=== PATIENT | female | born 1940 | race Caucasian/White ===

== ENCOUNTER 2016-10-30 04:49 | Inpatient (IN) | payer MEDICARE ==
[~2016-10-30] VITALS: Ht 160 cm; Wt 88.0 kg
--- NOTE | ~2016-10-30 | CR72 ---
[facility] A Service of [facility] RADIOLOGY TEXT RESULTS PATIENT: ROBE SEAMAN LOCATION: [facility] : 38 UNIT #: [id number] AGE: [address]: Theo Garcia MD SEX: F ORDER DR: [id number] [facility] [address] [place], [place] [address] [id number] E MR#: [id number] Acc #: [id number] NAME: ROBE SEAMAN : 1940 SEX: F STUDY DATE/TIME: 10/30/2016 6:04 UNIT: [facility] ROOM: STUDY DESCRIPTION: CR Chest Single View Portable Attending Physician: Theo Garcia M.D. Ordering Physician: Almita Wilcox A.P.R.N. Primary Care Physician: Li Scott M.D. MEDICAL IMAGING REPORT This report is preliminary unless electronic signature is present EXAM Portable chest, 10/30/2016 COMPARISON 09/24/2015 HISTORY Epigastric pain for 2 days. Shortness of air for 2 days. FINDINGS A portable view of the chest was obtained. The heart size and vascularity are normal and the lungs are clear. The bones are unremarkable. IMPRESSION No active disease. Dictated by... Huber Shaffer M.D. THIS IS AN ELECTRONICALLY VERIFIED REPORT Huber Shaffer M.D. at 10/30/2016 11:40 AM MERCEDES/jarett TD: 10/30/2016 10:40 JOB #: [id number] MEDICAL IMAGING REPORT Page 1 of 1 COPY
--- NOTE | ~2016-10-30 | US67 ---
[facility] A Service of [facility] RADIOLOGY TEXT RESULTS PATIENT: ROBE SEAMAN LOCATION: [facility] 576-01 : 38 UNIT #: [id number] AGE: [address]: Rosa Teague MD SEX: F ORDER DR: [id number] [facility] [address] [place], [place] [address] [id number] E MR#: [id number] Acc #: [id number] NAME: ROBE SEAMAN : 1940 SEX: F STUDY DATE/TIME: 10/30/2016 8:04 UNIT: [facility] ROOM: STUDY DESCRIPTION: Gallbladder Attending Physician: Theo Garcia M.D. Ordering Physician: Theo Garcia M.D. Primary Care Physician: Li Scott M.D. MEDICAL IMAGING REPORT This report is preliminary unless electronic signature is present EXAM Gallbladder ultrasound 10/30 INDICATIONS Abdominal pain for 2 days, mid epigastric. History of hyperlipidemia. FINDINGS Sonographic evaluation was performed of the right upper quadrant in multiple planes. No comparison. The pancreas is normal. Liver is grossly normal. The exam is degraded by prominent bowel gas. The right kidney is nonobstructed. The gallbladder contains some sludge. It is relatively poorly evaluated on this exam. No definite gallbladder wall thickening or gallstones. IMPRESSION Exam is degraded by bowel gas. The gallbladder is relatively poorly evaluated on this study. No obvious stones are seen although there is some gallbladder sludge. The common duct is never identified. Right kidney nonobstructed. Dictated by... Nick Zavala Jr., M.D. THIS IS AN ELECTRONICALLY VERIFIED REPORT Nick Zavala Jr., M.D. at 10/30/2016 5:19 PM ENRIQUEK/marina TD: 10/30/2016 12:42 JOB #: [id number] [facility] A Service of [facility] RADIOLOGY TEXT RESULTS PATIENT: ROBE SEAMAN LOCATION: [facility] 576-01 : 38 UNIT #: [id number] AGE: [address]: Rosa Teague MD SEX: F ORDER DR: MEDICAL IMAGING REPORT Page 1 of 1 COPY
--- NOTE | ~2016-10-30 | XA166 ---
[facility] A Service of [facility] RADIOLOGY TEXT RESULTS PATIENT: ROBE SEAMAN LOCATION: [facility] 576-01 : 38 UNIT #: [id number] AGE: [address]: Ramon Olivo MD SEX: F ORDER DR: [id number] [facility] [address] [place], [place] [address] [id number] I MR#: [id number] Acc #: [id number] NAME: ROBE SEAMAN : 1940 SEX: F STUDY DATE/TIME: 10/31/2016 14:49 UNIT: [facility] ROOM: [facility] STUDY DESCRIPTION: XA PICC Line Placement WO Port Attending Physician: Ramon Olivo M.D. Ordering Physician: Ramon Olivo M.D. Primary Care Physician: Li Scott M.D. MEDICAL IMAGING REPORT This report is preliminary unless electronic signature is present EXAM PICC line placement INDICATIONS Need for IV access in a patient with pancreatitis diagnosed on CT performed October 30, 2016. PRE-PROCEDURE The procedure was explained to the patient and/or patient energy conservation representative including risks, benefits, potential complications and potential for alternative forms of treatment. Informed consent was obtained, and prior to initiating the procedure a formal timeout procedure was performed. PROCEDURE Using full standard sterile barrier technique, including caps, gowns, gloves, masks, as well as sterile skin preparation and standard sterile draping, the right arm was prepped and draped in the usual fashion, and real-time sterile ultrasound guidance was used to localize an arm vein and to confirm vessel patency. A hard copy ultrasound image was recorded. After local anesthesia with 1% Xylocaine, the vein was punctured using real-time sterile ultrasound guidance, and an 0.018 guidewire was advanced into the superior vena cava, using fluoroscopic guidance. A 5-Ethiopian dual-lumen PICC was then measured and deployed with the tip positioned in the superior vena cava. The position of the line was documented with a radiographic image. The line was secured in place with an adhesive dressing and an antibiotic patch was applied. Total fluoro time was 0.1 minutes. IMPRESSION Successful placement of a 5-Ethiopian dual-lumen PowerPICC via the right arm under ultrasound and fluoroscopic guidance. The tip of the PICC is in good position in the superior vena cava. [facility] A Service of [facility] RADIOLOGY TEXT RESULTS PATIENT: ROBE SEAMAN LOCATION: [facility] 576-01 : 38 UNIT #: [id number] AGE: [address]: Ramon Olivo MD SEX: F ORDER DR: Dictated by... Erika Starr M.D. THIS IS AN ELECTRONICALLY VERIFIED REPORT Erika Starr M.D. at 11/01/2016 4:59 PM AFF/to TD: 11/01/2016 13:37 JOB #: [id number] MEDICAL IMAGING REPORT Page 1 of 1 COPY
--- NOTE | ~2016-10-30 | DS ---
Unit #: [id number] #: [id number] Patient: ROBE SEAMAN [id number] [address] [address] [id number] I MR#: [id number] NAME: ROBE SEAMAN ROOM: 576 Age: 76 Sex: F Admission Date: 10/30/2016 : 1940 Discharge Date: 11/02/2016 Attending Physician: Ramon Olivo M.D. Primary Care Physician: Li Scott M.D. DISCHARGE SUMMARY PRIMARY DIAGNOSIS Acute gallstone pancreatitis. SECONDARY DIAGNOSES 1. Cholecystitis. 2. Acute kidney injury, resolved prior to discharge. 3. Macrocytic anemia with normal B12 and folate. 4. History of asthma. 5. History of anxiety. 6. History of chronic shortness of breath of undetermined etiology, possibly related to her asthma, possibly related to chronic cardiac disease, possibly related to anxiety, possibly related to seasonal allergies and has been longstanding without any flare in the hospital at this time. HOSPITAL COURSE The patient was admitted to the hospital, given pain control, antibiotics and bowel rest with being made NPO. She was seen in consultation by gastroenterology with Dr. Tim Mae and underwent ERCP with findings of Harvey esophagus, gastritis, multiple small ulcers, dilated bile duct and multiple large filling defects suggestive of stones in the gallbladder. The patient underwent sphincterotomy, balloon extraction without any stones actually being extracted, and place of a 7 x 7 common bile duct stent. Subsequently surgery was consulted, and the patient underwent laparoscopic cholecystectomy on 11/01/2016. She had an uncomplicated postoperative course and is ambulating pain free, tolerating diet. She is somewhat unsteady on her feet, but she does already have a walker at home, and she will use that in the interval. We will also get physical therapy to see her at home. The patient had some tachycardia while here. I am going to increase her Lopressor slightly up from her home dose. DISCHARGE DISPOSITION To home with home health for physical therapy and occupational therapy. DISCHARGE STATUS Stable. DISCHARGE DIET A 2,000 mg sodium, heart healthy diet. DISCHARGE ACTIVITY Unit #: [id number] #: [id number] Patient: ROBE SEAMAN With her wheeled walker at all times until cleared for more activity by physical therapy. DISCHARGE FOLLOWUP 1. Discharge followup is with Dr. Reeder with surgery in 10-14 days. 2. Follow up with her PCP in 2-4 weeks. 3. Follow up with Dr. Tim Mae in 4 weeks. DISCHARGE MEDICATIONS 1. Lexapro 10 mg p.o. daily. 2. Fexofenadine 1 tablet p.o. daily. 3. Requip 0.25 mg p.o. q.h.s. 4. Lorazepam 1 mg p.o. q.h.s. 5. Lopressor 25 mg p.o. t.i.d. 6. Omeprazole 40 mg p.o. once daily. 7. Lisinopril 10 mg p.o. once daily. 8. Allopurinol 300 mg p.o. daily. 9. Lortab 5/325 mg 1 tablet p.o. q.6 hours p.r.n. pain for the next 10 days. Dictated by... Ramon Olivo M.D. CHAYA/diana TD: 11/04/2016 12:17 JOB #: [id number] DISCHARGE SUMMARY Page 1 of 1 X Ramon Olivo MD X DISCHARGE SUMMARY
--- NOTE | ~2016-10-30 | CO ---
Unit #: [id number] #: [id number] Patient: ROBE SEAMAN [id number] [address] [place], [place] [address] [id number] I MR#: [id number] NAME: ROBE SEAMAN ROOM: 576 Age: 76 Sex: F Admission Date: 10/30/2016 : 1940 Attending Physician: Ramon Olivo M.D. Primary Care Physician: Li Scott M.D. Consultation Date: 10/31/2016 CONSULTATION REPORT CHIEF COMPLAINT Abdominal pain. HISTORY OF PRESENT ILLNESS This is a 76-year-old lady, who began feeling sick to her stomach on Sunday, pain intensified. She had some nausea and vomiting that began on Sunday. She came into the ER and was diagnosed with pancreatitis. She has not had any prior episodes. The pain localized to the midsternal region. PAST MEDICAL HISTORY Significant for coronary artery disease, congestive heart failure, hypertension, history of asthma. PAST SURGICAL HISTORY She has had a hysterectomy with bladder repair. She has had cardiac stents placed in 2009. She has undergone recent cardiac evaluation with no new suggestions. She has also undergone tonsillectomy, cataract surgery, right foot surgery, left knee replacement, and she had a colonoscopy in the past. Please see med rec list. ALLERGIES In terms of allergies, she is allergic to statins. SOCIAL HISTORY She is . Denies any tobacco or alcohol use. FAMILY HISTORY Negative for cancer. REVIEW OF SYSTEMS Negative for fevers, weight loss, or jaundice and is otherwise as above. PHYSICAL EXAMINATION VITAL SIGNS: Temperature is 98.3, heart rate is 95, respiratory rate is 16, blood pressure is 149/65. GENERAL: She is in no acute distress. HEENT: Pupils are equal and reactive to light and accommodation and her extraocular muscles are intact. NECK: Without masses or bruits. LUNGS: Show good breath sounds bilaterally with equal air exchange. CARDIAC: Shows regular rate and rhythm without murmur. ABDOMEN: Soft, nondistended, and she has mild tenderness in the epigastric region. Unit #: [id number] #: [id number] Patient: ROBE SEAMAN NEUROLOGIC: She is alert and oriented. There are no focal deficits. EXTREMITIES: Without edema or cyanosis. DIAGNOSTIC STUDIES IMAGING STUDIES: Ultrasound showed questionable sludge. She has CT scan that showed pancreatitis and gallstones. Previous CT scan in 2011 also showed gallstones. LABORATORY RESULTS: Amylase on admission was 747 that came down to 185, lipase went from 745 down to 57. Total bilirubin is normal. Alkaline phosphatase is normal. Mild increase in her AST and ALT. White count is 12,000, hemoglobin is 11.4. She underwent ERCP today and was noted to have multiple stones in the common bile duct and a stent was placed. OVERALL IMPRESSION This is a lady who had a gallstone pancreatitis. I talked to her about proceeding with laparoscopic cholecystectomy. We discussed her procedure including risks, benefits, and complications of bleeding, infection, bile leak, and common bile duct injury. We also discussed possibly having to convert to an open procedure. She understands and wishes to proceed. Dictated by... Brian Reeder III, M.D. VCL/mariposa TD: 11/01/2016 03:50 JOB #: [id number] CONSULTATION REPORT Page 1 of 1 X Brian Reeder III, MD CONSULTATION REPORT
--- NOTE | ~2016-10-30 | EKG ---
PATIENT: ROBE SEAMAN UNIT #: [id number] Ventricular Rate: 115 BPM Atrial Rate: 115 BPM P-R Interval: 162 ms QRS Duration: 110 ms Q-T Interval: 326 ms QTC Calculation(Bezet): 450 ms P [place]: 56 degrees Calculated R [place]: -17 degrees Calculated T [place]: 102 degrees Diagnosis Line: Sinus tachycardia Diagnosis Line: ST and T wave abnormality, consider lateral ischemia Diagnosis Line: Abnormal ECG Diagnosis Line: When compared with ECG of 24-SEP-2015 23:00, Diagnosis Line: No significant change was found Diagnosis Line: Confirmed by KATJA DOHERTY MD ([id number]) on Diagnosis Line: 10/30/2016 9:36:58 AM INTERPRETING MD: BESSY COLEY
--- NOTE | ~2016-10-30 | CR84 ---
[facility] A Service of [facility] & [facility] RADIOLOGY TEXT RESULTS PATIENT: ROBE SEAMAN LOCATION: [facility] 576-01 : 38 UNIT #: [id number] AGE: [address]: Ramon Olivo MD SEX: F ORDER DR: [id number] [facility] [address] [place], [place] [address] [id number] I MR#: [id number] Acc #: [id number] NAME: ROBE SEAMAN : 1940 SEX: F STUDY DATE/TIME: 10/31/2016 10:37 UNIT: [facility] ROOM: [facility] STUDY DESCRIPTION: CR ERCP Biliary and Pancr SI Attending Physician: Ramon Olivo M.D. Ordering Physician: Tim Mae M.D. Primary Care Physician: Li Scott M.D. MEDICAL IMAGING REPORT This report is preliminary unless electronic signature is present EXAM ERCP HISTORY Cholecystectomy, biliary pancreatitis, and elevated liver enzymes. Fluoroscopy time 2 minutes 51 seconds. FINDINGS Four fluoroscopic spot films were obtained during the ERCP procedure performed by the attending endoscopist. Injection of the common bile duct demonstrates mild intra and extrahepatic biliary ductal dilatation. The distal third of the common bile duct is not opacified. No strictures identified within the opacified bile ducts. Balloon sweep of the extrahepatic duct was performed and a biliary stent was placed extending to approximately the level of the descending duodenum. The pancreatic duct was not injected. No intraductal filling defects are identified. IMPRESSION 1. Mild dilatation of the opacified intra and extrahepatic bile ducts. The distal third of the common bile duct is not opacified. 2. No intraductal filling defects are identified. No biliary stricture is demonstrated. 3. Balloon sweep was performed. Biliary stent was placed at the conclusion of the procedure. Dictated by... Jose Johnson M.D. THIS IS AN ELECTRONICALLY VERIFIED REPORT Jose Johnson M.D. at 11/01/2016 11:30 PM DFL/rnr [facility] A Service of [facility] & [facility] RADIOLOGY TEXT RESULTS PATIENT: ROBE SEAMAN LOCATION: [facility] 576-01 : 38 UNIT #: [id number] AGE: [address]: Ramon Olivo MD SEX: F ORDER DR: TD: 11/01/2016 01:37 JOB #: [id number] MEDICAL IMAGING REPORT Page 1 of 1 COPY
--- NOTE | ~2016-10-30 | CT4 ---
[facility] A Service of [facility] & [facility] RADIOLOGY TEXT RESULTS PATIENT: ROBE SEAMAN LOCATION: [facility] : 38 UNIT #: [id number] AGE: [address]: Theo Garcia MD SEX: F ORDER DR: [id number] [facility] [address] [place], [place] [address] [id number] E MR#: [id number] Acc #: [id number] NAME: ROBE SEAMAN : 1940 SEX: F STUDY DATE/TIME: 10/30/2016 UNIT: [facility] ROOM: STUDY DESCRIPTION: CT Abd and Pelv Wo Cont Attending Physician: Theo Garcia M.D. Ordering Physician: Theo Garcia M.D. Primary Care Physician: Li Scott M.D. MEDICAL IMAGING REPORT This report is preliminary unless electronic signature is present EXAM CT abdomen and pelvis without contrast 10/30/2016 11:03 hours HISTORY 76-year-old woman with complaint of epigastric abdominal pain for 2 days with associated nausea and vomiting. COMPARISON CT abdomen and pelvis 08/14/2011 TECHNIQUE Helical noncontrasted images were obtained from the lung bases through the pubic symphysis without oral or intravenous contrast. Sagittal and coronal reconstructions were performed. Total exam DLP is 946 mGy-cm. The CT exam was performed with one or more of the following radiation dose reduction techniques: automatic exposure control, adjustment of mA and/or kV according to patient size, and iterative reconstruction. FINDINGS Images through the lung bases demonstrate mild linear density at both bases consistent with chronic atelectasis or scar. There are a few tiny calcified granulomata which are unchanged. Noncontrasted images through the abdomen demonstrate a normal appearance to the liver and spleen. The gallbladder is distended with stones present. There is no definite gallbladder wall thickening. The pancreas is normal in size. There is fluid and stranding around the head, body and tail of the pancreas. There is mild stranding extending towards the left pericolic gutter new from 2011. The findings raise concern for acute non-hemorrhagic pancreatitis. Correlate with amylase and lipase. The adrenal glands are normal. The kidneys appear slightly atrophic with no STS. [facility] A Service of [facility] & [facility] RADIOLOGY TEXT RESULTS PATIENT: ROBE SEAMAN [id number] UNIT #: [id number] AGE: [address]: Theo Garcia MD SEX: F ORDER DR: mass or stone. There is no ureterectasis or ureteral calculus. The bladder is normal. There are multiple retroperitoneal and pelvic phleboliths similar to prior exam. The stomach is contracted. No lesions are seen. There is some fluid posterolateral to the greater curvature of the stomach superior to the pancreas measuring up to 4.5 cm. This does not appear to have a percent the bone wall. Small bowel is normal. The terminal ileum is normal. There is no evidence of appendicitis. The colon is decompressed. There a few scattered diverticula but no wall thickening. CT pelvis demonstrates the uterus is surgically absent. There is no adnexal mass. There is a very small amount of dependent free fluid. IMPRESSION 1. There is mild ground-glass density surrounding the pancreas with some fluid around the pancreas and extending posterior to the stomach with stranding extending into the anterior pararenal space on the left. The findings raise concern for non hemorrhagic pancreatitis. There is no dilatation of the pancreatic duct and no drainable fluid collection. There is an 4 cm area of fluid posterolateral to the greater curvature of the stomach cephalad to the pancreas which does not appear to have a percent of the wall or organized appearance. 2. Cholelithiasis with distended gallbladder. There is no gallbladder wall thickening. There is no definite common bile duct stones seen. There is no dilatation of the pancreatic duct. 3. No renal or ureteral calculi. 4. Diverticulosis without evidence of diverticulitis. Dictated by... Rosa Roy M.D. THIS IS AN ELECTRONICALLY VERIFIED REPORT Rosa Roy M.D. at 10/30/2016 2:28 PM GRETEL/marina TD: 10/30/2016 11:28 JOB #: [id number] MEDICAL IMAGING REPORT Page 1 of 1 COPY
--- NOTE | ~2016-10-30 | OR ---
Unit #: [id number] #: [id number] Patient: ROBE SEAMAN [id number] [address] [address] [id number] [place] MR#: [id number] NAME: ROBE SEAMAN ROOM: 576 Date of Procedure: 11/01/2016 Admission Date: 10/30/2016 Surgeon: Brian Reeder III, M.D. : 1940 Attending Physician: Ramon Olivo M.D. Primary Care Physician: Li Scott M.D. OPERATIVE REPORT PREOPERATIVE DIAGNOSIS Gallstone pancreatitis. POSTOPERATIVE DIAGNOSIS Gallstone pancreatitis. PROCEDURE PERFORMED Laparoscopic cholecystectomy. DRUM SAW OPERATOR Alejo Blackwell M.D. SPECIMENS Gallbladder to pathology. COMPLICATIONS None apparent. ESTIMATED BLOOD LOSS Minimal. ANESTHESIA General endotracheal tube anesthesia. INDICATIONS FOR PROCEDURE This is a 76-year-old lady, who presented with gallstone pancreatitis. She underwent ERCP yesterday with retrieval of stones from the main bile duct and placement of a stent. She is here today for completion cholecystectomy. DESCRIPTION OF PROCEDURE After consent was obtained, the patient was brought to the operating room and placed in the supine position. General anesthetic was administered. Her abdomen was prepped and draped in standard surgical fashion. I made a 5-mm incision in the right upper quadrant using Optiview to enter into the peritoneal cavity without any difficulty. CO2 pneumoperitoneum was then established. Next, a second 5-mm port was placed in the supraumbilical region, and an 11-mm port was placed in the midepigastric region, and a third 5-mm port was placed in the right lateral subcostal region. I was able to grasp her gallbladder and retracted superiorly and laterally. The gallbladder had some mildly friable areas that did tear and spilled some bile. This was suctioned at the end of the case. I was able to dissect Unit #: [id number] #: [id number] Patient: ROBE SEAMAN out the cystic duct and cystic artery and after these were carefully identified, I placed 2 clips proximally and one clip distally along both structures and then they were divided. The gallbladder was then taken off the liver bed using the hook cautery without any difficulty. The gallbladder was extracted through the epigastric port site with some dilatation of the fascia. I irrigated and had good hemostasis except for some mild bleeding from the liver bed which was cauterized and then secured with Surgicel to facilitate hemostasis. There were couple of spilled stones that were retrieved as well. All needle, sponge, and instrument counts were correct x2. I removed all the trocars and released pneumoperitoneum. I injected all port sites with 0.25% plain Marcaine and I reapproximated the skin edges with interrupted 4-0 Vicryl subcuticular suture. Steri-Strips were then applied. The patient tolerated the procedure without any problems and returned to the recovery room in stable condition. Dictated by... Brian Reeder III, M.D. VCL/mariposa TD: 11/03/2016 03:47 JOB #: [id number] CC: Tim Mae M.D. OPERATIVE REPORT Page 1 of 1 X Brian Reeder III, MD X PROCEDURE OPERATIVE NOTE
--- NOTE | ~2016-10-30 | OR ---
Unit #: [id number] #: [id number] Patient: ROBE SEAMAN [id number] [address] [place], [place] [address] [id number] MR#: [id number] NAME: ROBE SEAMAN ROOM: 576 Date of Procedure: 10/31/2016 Admission Date: 10/30/2016 Surgeon: Tim Mae M.D. : 1940 Attending Physician: Ramon Olivo M.D. Primary Care Physician: Li Scott M.D. OPERATIVE REPORT JOB NOTE: VERIFY MRN. CC: PRIMARY CARE PHYSICIAN. PROCEDURE PERFORMED Esophagogastroduodenoscopy with biopsy, endoscopic retrograde cholangiopancreatography with sphincterotomy, balloon extraction as well as stenting of common bile duct. INDICATIONS The patient presented with acute abdominal pain, acute biliary pancreatitis, abnormal LFTs, as well as gallstones with possibility of common bile duct stones. MEDICATIONS Monitored anesthesia. POSTOPERATIVE FINDINGS 1. 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 Biopsies taken. 2. Significant gastritis along with multiple small ulcers, two small, one is in fundus also. Biopsies taken looking for Helicobacter pylori. 3. Normal duodenum and distal duodenum. 4. Bile duct was cannulated and showed dilation up to 9 to 10 mm. Cystic duct was patent, filling gallbladder with multiple large filling defects. 5. No clear filling defects in the bile duct. 6. Small sphincterotomy was made at 12 o'clock position. 7. Balloon extraction was carried out. No stones were seen. 8. 7 x 7 CBD stent was placed under fluoroscopic guidance. 9. PD was not injected. PLAN Continue follow in-house with aggressive medical management. Lap sivan per LSA. DESCRIPTION OF PROCEDURE The patient was explained of the procedure, risks, and benefits along with risks and benefits of anesthesia. She was brought to the endoscopy room. Propofol anesthesia was given. She was laid in the prone position. EGD was done first. Scope was passed down the mouth into esophagus, stomach, duodenum, and distal duodenum. Findings as described. Biopsies taken in Unit #: [id number] #: [id number] Patient: ROBE SEAMAN the stomach and distal esophagus. ERCP done. The scope was then passed down the mouth into the esophagus, stomach. Ampulla was visualized. It was normal in appearance. After few attempts, I was able to cannulate the bile duct selectively. Findings have been described above. Sphincterotomy was then performed first. Balloon extraction was then carried out which was negative. I then placed a 7 x 7 stent across the bile duct under fluoroscopic and endoscopic guidance. Gently, the scope was pulled out. Gastric decompression was carried out. She tolerated it well. No major complications were seen. Dictated by... Donal Gomez/[place] TD: 11/01/2016 03:56 JOB #: [id number] OPERATIVE REPORT Page 1 of 1 X Tim Mae MD X PROCEDURE OPERATIVE NOTE
--- NOTE | ~2016-10-30 | HP ---
Unit #: [id number] #: [id number] Patient: ROBE SEAMAN [id number] [facility]. [place], [place] [address] [id number] MR#: [id number] NAME: ROBE SEAMAN ROOM: Age: 76 Sex: F Admission Date: 10/30/2016 : 1940 Attending Physician: Theo Garcia M.D. Primary Care Physician: Li Scott M.D. HISTORY AND PHYSICAL CHIEF COMPLAINT Abdominal pain. HISTORY OF PRESENT ILLNESS The patient is a 76-year-old female with past medical history of hypertension, hyperlipidemia, coronary artery disease, congestive heart failure, GERD, anxiety, depression, urinary retention who presented to the emergency department for evaluation of the above. The patient states that she started feeling bad on the 28 of October. She states that initially her stomach felt "upset." She then experienced pain in the upper abdomen and now it is "everywhere." She describes it as "severe." She also describes it as "hard cramping." There are exacerbating or alleviating factors. She has had three bouts of nonbloody emesis within the past 24 hours and one bout of nonbloody diarrhea. She denies any fever. No cough or cold symptoms. In the emergency department, initial pulse and blood pressure are 124 and [address] of the abdomen and pelvis was done and showed findings concerning for pancreatitis. Amylase and lipase are 747 and 745 respectively. She was given 1 L of normal saline in the emergency department as well as morphine and Zofran. She is being admitted to [facility] for evaluation and further treatment. PAST MEDICAL HISTORY 1. Admission to [facility], April 21 through April 24, 2013, for left total knee arthroplasty. 2. Congestive heart failure. I do not see an echocardiogram in [facility]; however, the patient did have a cardiac catheterization on June 15, 2009 that showed an ejection fraction of about 60%. 3. Coronary artery disease, status post cardiac stent placement followed by Dr. Weaver. The patient has seen Dr. Marley in the past here at [facility]. 4. History of urinary retention. 5. Hypertension. 6. Hyperlipidemia. 7. GERD. 8. Anxiety and depression. PAST SURGICAL HISTORY 1. Cardiac catheterization. 2. Hysterectomy. 3. Bladder repair. 4. Cardiac stent placement. Unit #: [id number] #: [id number] Patient: ROBE SEAMAN 5. Tonsillectomy. 6. Cataract surgery. 7. D and C. 8. Right foot surgery. 9. Colonoscopy. 10. Left knee surgery. SOCIAL HISTORY The patient lives with her . There is no tobacco use. She reports occasional alcohol use. FAMILY HISTORY Notable for hypertension, CHF, coronary artery disease. ALLERGIES Statins. HOME MEDICATIONS 1. Allopurinol 300 mg daily. 2. Lexapro 10 mg daily. 3. Zestril 10 mg daily. 4. [place] daily. 5. Lopressor 25 mg twice daily. 6. Lorazepam 1 mg daily. 7. Requip 0.25 mg at bedtime. REVIEW OF SYSTEMS A complete review of systems is negative except as indicated in the HPI. The patient recently completed a course of antibiotics (unknown antibiotic) for urinary tract infection. DIAGNOSTIC STUDIES LABORATORY: Complete blood count notable for MCV of 100.4. Troponin is less than 0.05. Comprehensive metabolic panel notable for glucose of 144, BUN and creatinine 38 and 1.6 respectively. AST and ALT are 136 and 138 respectively. Amylase and lipase are 747 and 745 respectively. Urinalysis essentially negative. IMAGING: CT of the abdomen and pelvis shows findings concerning for nonhemorrhagic pancreatitis, cholelithiasis with a distended gallbladder is also noted with no gallbladder wall thickening. Chest x-ray shows no active disease. Right upper quadrant ultrasound is pending at the time of this dictation. CARDIOVASCULAR: EKG shows sinus tachycardia with rate of 115 beats per minute. PHYSICAL EXAMINATION VITAL SIGNS: Temperature is 98.7, pulse 124, respirations 15, blood pressure 156/88, oxygen saturation is 98% on room air. GENERAL: The patient is a female who is awake and alert in no acute distress. HEENT: The head is atraumatic. Mucous membranes are moist. NECK: Supple. Trachea is midline. CARDIOVASCULAR: Regular rate and rhythm. LUNGS: Clear to auscultation bilaterally with no increased work of Unit #: [id number] #: [id number] Patient: ROBE SEAMAN breathing. ABDOMEN: Soft. She is tender to palpation in the epigastric region. Bowel sounds are present in all four quadrants. EXTREMITIES: Nontender with no pedal edema. NEUROLOGIC: The patient is awake and alert. She follows commands. PSYCHIATRIC: Mood and affect are normal. The patient is cooperative. SKIN: Skin of examined areas is warm and dry. ASSESSMENT The patient is a 76-year-old female: 1. Acute pancreatitis, likely secondary to #2. The patient is also on lisinopril which could be contributing. 2. Cholelithiasis with pending right upper quadrant ultrasound. 3. Acute kidney injury: The patient's creatinine was 1.1 on September 24, 2015. It is 1.6 today. This is likely prerenal in etiology as the patient has had vomiting and diarrhea. 4. Transaminitis. 5. Hypertension. 6. Hyperlipidemia. 7. Coronary artery disease, status post stent placement with an ejection fraction of 60% noted on cardiac catheterization in 2009. 8. Gastroesophageal reflux disease. 9. Anxiety, depression. 10. History of urinary retention. PLAN 1. Admit to intermediate level. 2. NPO except medications. 3. Normal saline at 75 mL/hr. 4. P.r.n. morphine. 5. P.r.n. Zofran. 6. Followup results of gallbladder ultrasound. 7. Fasting lipid panel. 8. Hold lisinopril which could be contributing to pancreatitis. 9. Consult Dr. Mae regarding pancreatitis. 10. Serial cardiac enzymes. 11. Repeat labs in the morning including amylase and lipase. 12. Sequential compression devices for deep venous thrombosis prophylaxis. 13. Additional workup and consultants based on above. Dictated by Donal Segura/christi TD: 10/30/2016 13:55 JOB #: [id number] Unit #: [id number] #: [id number] Patient: ROBE SEAMAN HISTORY AND PHYSICAL Page 1 of 1 X Rosa Teague MD HISTORY AND PHYSICAL
[~2016-10-30 04:49] MED LIST: ALLEGRA ALLERG180 MG PO; ASPIRIN81 M2 PO; CLONAZEPAM2 MG PO; FLEXERIL10 M1 PO; FLUOXETINE HCL20 M1 PO; LEVAQUIN PO; LISINOPRIL10 MG PO; MEDI-MECLIZINE25 M1 PO; METOPROLOL TAR25 MG PO; METOPROLOL TART25 MG PO; NAPROSYN500 MG PO; NORCO 7.5-3251 EACH PO; PROZAC40 M1 PO; VITAMIN D31000 UNI1 PO; ZYLOPRIM100 MG PO
[2016-10-30 05:51] LABS: BASOPHIL% 0.4 % (0-2.5); EOSINOPHIL% 0.4 % (0.0-7.0); HEMATOCRIT 39.3 % (35.0-45.0); HEMOGLOBIN 12.6 gm/dL (12.0-16.0); LYMPHOCYTE# 1.6 X10e3 (1.0-3.5); LYMPHOCYTE% 15.3 % (17.0-45.0); MEAN CELL VOLUME 100.4 FL (83-96); MEAN CORPUSCULAR HEMOGLOBIN 32.2 PG (28-34); MEAN CORPUSCULAR HGB CONC 32.1 g/dL (30-36); MEAN PLATELET VOLUME 8.7 FL (6.5-11.5); MONOCYTE# 0.8 X10e3 (0-1.0); MONOCYTE% 7.7 % (3.0-12.0); NEUTROPHIL% 76.2 % (40-75); PLATELET COUNT 227 X10e3 (140-420); RED BLOOD COUNT 3.92 X10e (3.90-5.30); RED CELL DISTRIBUTION WIDTH 14.8 % (11.0-15.5); WHITE BLOOD COUNT 10.5 X10e3 (4.0-10.5)
[2016-10-30 05:53] LABS: DIFF IND NO
[2016-10-30 06:24] LABS: POC - CKMB 1.7 ng/mL (0.0-7.9); POC - TROPONIN <0.05 ng/mL (<=0.05)
[2016-10-30 06:57] LABS: ALBUMIN SERUM 3.9 g/dL (3.5-5.0); BILIRUBIN, DIRECT 0.2 mg/dL (0.0-0.2); BILIRUBIN,INDIRECT 0.7 mg/dL (0.0-0.9); BILIRUBIN,TOTAL 0.9 mg/dL (0.2-2.0); BUN/CREATININE RATIO 23.75; CALCIUM SERUM 9.6 mg/dL (8.4-10.2); CREATININE SERUM 1.6 mg/dL (0.6-1.4); GLOM FILT RATE Estimated 30.6 mL/min (>60); POTASSIUM 4.5 mmol/L (3.5-5.1); PROTEIN TOTAL SERUM 6.7 g/dL (6.0-8.3)
[2016-10-30 07:53] LABS: URINE SOURCE CLEAN CATCH
[2016-10-30 07:59] LABS: URINE APPEARANCE CLEAR; URINE BILIRUBIN NEG (NEG); URINE BLOOD NEG (NEG); URINE COLOR YELLOW; URINE GLUCOSE NEG (NEG); URINE KETONE NEG (NEG); URINE LEUKOCYTE ESTERASE NEG (NEG); URINE NITRATE NEG (NEG); URINE PH 7.5 (5-8); URINE PROTEIN NEG (NEG); URINE SPECIFIC GRAVITY 1.014 (1.003-1.035); URINE UROBILINOGEN 0.2 MG/DL (NEG)
[2016-10-30 08:02] LABS: CULTURE INDICATED? NO
[2016-10-30 09:59] LABS: POC - CKMB 1.5 ng/mL (0.0-7.9); POC - TROPONIN <0.05 ng/mL (<=0.05)
[2016-10-30] MEDS ORDERED: LISINOPRIL PO (11:18)
[2016-10-30] MEDS ORDERED: ALLOPURINOL300 MG PO (11:18)
[2016-10-30] MEDS ORDERED: PATIENT'S PHARMACY (11:18)
[2016-10-30] MEDS ORDERED: LEXAPRO PO (11:18)
[2016-10-30] MEDS ORDERED: REQUIP0.25 MG PO (11:19)
[2016-10-30] MEDS ORDERED: ATIVAN PO (11:19)
[2016-10-30] MEDS ORDERED: ALLEGRA PO (11:19)
[2016-10-30] MEDS ORDERED: LOPRESSOR PO (11:19)
[2016-10-30 13:38] LABS: CHOLESTEROL 229 mg/dL (0-200); HDL CHOLESTEROL 56 mg/dL (35-95); LDL/HDL RATIO 3 RATIO (0-4); TRIGLYCERIDES 79 mg/dL (10-160)
[2016-10-30 13:41] LABS: LDL CHOLESTEROL 157 mg/dL ([, -130])
[2016-10-30 16:32] LABS: CK TOTAL 56 IU/L (26-140)
[2016-10-30 21:35] LABS: %MB 6.2 % (0.0-4.0); MB 3.8 ng/ml
[2016-10-31 05:53] LABS: HEMOGLOBIN 11.4 gm/dL (12.0-16.0); MEAN CELL VOLUME 102.3 FL (83-96); MEAN CORPUSCULAR HEMOGLOBIN 32.3 PG (28-34); MEAN CORPUSCULAR HGB CONC 31.6 g/dL (30-36); RED BLOOD COUNT 3.52 X10e (3.90-5.30); RED CELL DISTRIBUTION WIDTH 14.8 % (11.0-15.5); WHITE BLOOD COUNT 12.9 X10e3 (4.0-10.5)
[2016-10-31 06:38] LABS: ALBUMIN SERUM 3.2 g/dL (3.5-5.0); BILIRUBIN,TOTAL 0.5 mg/dL (0.2-2.0); CALCIUM SERUM 8.3 mg/dL (8.4-10.2); GLOM FILT RATE Estimated 53.9 mL/min (>60); POTASSIUM 4.4 mmol/L (3.5-5.1); PROTEIN TOTAL SERUM 5.9 g/dL (6.0-8.3)
[2016-11-01 05:44] LABS: HEMOGLOBIN 10.5 gm/dL (12.0-16.0); MEAN CELL VOLUME 102.4 FL (83-96); MEAN CORPUSCULAR HEMOGLOBIN 32.7 PG (28-34); MEAN PLATELET VOLUME 8.8 FL (6.5-11.5); RED BLOOD COUNT 3.22 X10e (3.90-5.30); RED CELL DISTRIBUTION WIDTH 14.8 % (11.0-15.5); WHITE BLOOD COUNT 9.8 X10e3 (4.0-10.5)
[2016-11-01 06:25] LABS: ALBUMIN SERUM 2.9 g/dL (3.5-5.0); BILIRUBIN,TOTAL 0.8 mg/dL (0.2-2.0); BUN/CREATININE RATIO 23.75; CALCIUM SERUM 8.1 mg/dL (8.4-10.2); CREATININE SERUM 0.8 mg/dL (0.6-1.4); GLOM FILT RATE Estimated 70.7 mL/min (>60); POTASSIUM 3.8 mmol/L (3.5-5.1); PROTEIN TOTAL SERUM 5.6 g/dL (6.0-8.3)
[2016-11-02 05:58] LABS: BASOPHIL% 0.3 % (0-2.5); EOSINOPHIL# 0.1 X10e3 (0-0.7); EOSINOPHIL% 1.4 % (0.0-7.0); HEMATOCRIT 31.6 % (35.0-45.0); HEMOGLOBIN 10.2 gm/dL (12.0-16.0); LYMPHOCYTE% 12.3 % (17.0-45.0); MEAN CELL VOLUME 101.2 FL (83-96); MEAN CORPUSCULAR HEMOGLOBIN 32.7 PG (28-34); MEAN CORPUSCULAR HGB CONC 32.3 g/dL (30-36); MEAN PLATELET VOLUME 8.9 FL (6.5-11.5); MONOCYTE# 0.8 X10e3 (0-1.0); MONOCYTE% 9.9 % (3.0-12.0); NEUTROPHIL# 5.9 X10e3 (1.5-7.1); NEUTROPHIL% 76.1 % (40-75); PLATELET COUNT 204 X10e3 (140-420); RED BLOOD COUNT 3.13 X10e (3.90-5.30); RED CELL DISTRIBUTION WIDTH 14.6 % (11.0-15.5); WHITE BLOOD COUNT 7.8 X10e3 (4.0-10.5)
[2016-11-02 06:08] LABS: DIFF IND NO
[2016-11-02 07:16] LABS: ALBUMIN SERUM 2.6 g/dL (3.5-5.0); BILIRUBIN,TOTAL 1.2 mg/dL (0.2-2.0); BUN/CREATININE RATIO 18.75; CREATININE SERUM 0.8 mg/dL (0.6-1.4); GLOM FILT RATE Estimated 70.7 mL/min (>60); POTASSIUM 3.6 mmol/L (3.5-5.1); PROTEIN TOTAL SERUM 5.3 g/dL (6.0-8.3)
[2016-11-02] MEDS ORDERED: LORTAB 5-325 M1 EACH PO (13:27)
[2016-11-02] MEDS ORDERED: OMEPRAZOLE40 M1 PO (13:28)
== END 2016-11-02 16:27 | disposition home or self-care (01) | DRG 418 ==
LOC: CED 04:49 → C5C 12:50 → CEDOF 12:50 → CED 16:37 → CEDOF 16:41 → C5C 16:41
PROVIDERS: Emergency Medicine; Family Medicine; Internal Medicine; Nurse Practitioner; Surgery
PROC: 02HV33Z Insertion of Infusion Device into Superior Vena Cava, Percutaneous Approach (ICD-10-PCS; 2016-10-31)
PROC: B548ZZA Ultrasonography of Superior Vena Cava, Guidance (ICD-10-PCS; 2016-10-31)
PROC: 0F798DZ Dilation of Common Bile Duct with Intraluminal Device, Via Natural or Artificial Opening Endoscopic (ICD-10-PCS; 2016-10-31 11:05)
PROC: 0DB38ZX Excision of Lower Esophagus, Via Natural or Artificial Opening Endoscopic, Diagnostic (ICD-10-PCS; 2016-10-31 11:05)
PROC: 0DB68ZX Excision of Stomach, Via Natural or Artificial Opening Endoscopic, Diagnostic (ICD-10-PCS; 2016-10-31 11:05)
PROC: 0FT44ZZ Resection of Gallbladder, Percutaneous Endoscopic Approach (ICD-10-PCS; principal; 2016-11-01 10:30)
DX: K85.10 Biliary acute pancreatitis without necrosis or infection (principal); N17.9 Acute kidney failure, unspecified; D53.9 Nutritional anemia, unspecified; I11.0 Hypertensive heart disease with heart failure; I50.9 Heart failure, unspecified; K81.9 Cholecystitis, unspecified; F41.9 Anxiety disorder, unspecified; F32.9 Major depressive disorder, single episode, unspecified; J45.909 Unspecified asthma, uncomplicated; K22.70 Barrett's esophagus without dysplasia; K29.70 Gastritis, unspecified, without bleeding; R00.0 Tachycardia, unspecified; E78.5 Hyperlipidemia, unspecified; K21.9 Gastro-esophageal reflux disease without esophagitis; Z90.710 Acquired absence of both cervix and uterus; I25.10 Atherosclerotic heart disease of native coronary artery without angina pectoris; Z95.5 Presence of coronary angioplasty implant and graft; M19.90 Unspecified osteoarthritis, unspecified site; Z82.49 Family history of ischemic heart disease and other diseases of the circulatory system; Z88.8 Allergy status to other drugs, medicaments and biological substances
CPT/HCPCS: 36415; 71010; 74176; 74330; 76705; 76937; 77001; 80048; 80053; 80061; 80076; 81003; 82150; 82550; 82553; 82607; 82746; 82947; 83690; 84484; 85025; 85027; 88304; 88305; 88312; 93005; 94760; 96374; 96375; 96376; 97162; 99285; C1751; C9113; G8978-GP; G8979-GP; G8980-GP; J0295; J1610; J2250; J2270; J2405; J3010